=== PATIENT | male | born 1980 | race Caucasian/White ===

== ENCOUNTER → 2017-09-21 09:55 | Outpatient (REF) | payer BC, SELFPAY ==
[2017-09-21 14:22] LABS: Basophils % 0.3 % (0.1-2.0); Eosinophils # 0.1 K/mm3 (0.0-0.4); Eosinophils % 2.1 % (0.1-12.0); Hematocrit 48.3 % (42.0-52.0); Hemoglobin 15.6 g/dL (14.1-18.0); Lymphocytes # 1.9 K/mm3 (0.7-4.5); Lymphocytes % 30.7 K/mm3 (10-50); Mean Corpuscular HGB Conc 32.3 g/dL (31.8-35.4); Mean Corpuscular Hemoglobin 28.4 pg (27.0-31.2); Mean Corpuscular Volume 87.9 fl (80-94); Mean Platelet Volume 9.2 fl (7.4-10.4); Monocytes # 0.4 K/mm3 (0.1-1.0); Monocytes % 6.3 % (1.7-9.3); Neutrophils # 3.8 K/mm3 (1.8-7.8); Neutrophils % 60.6 % (37.0-80.0); Platelet Count 193 K/mm3 (142-424); Red Cell Distribution Width 13.3 % (11.5-17.5); White Blood Count 6.3 K/mm3 (4.8-10.8)
[2017-09-21 14:58] LABS: Hemoglobin A1C 9.4 % (0.0-7.0)
[2017-09-21 15:05] LABS: Alanine Aminotransferase 56 U/L (12-78); Albumin Level 3.7 gm/dL (3.4-5.0); Albumin/Globulin Ratio 1.2 (1.1-1.8); Alkaline Phosphatase 87 U/L (46-116); Anion Gap 11.6 mEq/L (5-15); Aspartate Amino Transferase 26 U/L (15-37); Bilirubin,Total 0.9 mg/dL (0.2-1.0); Blood Urea Nitrogen 10 mg/dL (7-18); Calcium 8.5 mg/dL (8.5-10.1); Carbon Dioxide 29 mmol/L (21.0-32.0); Chloride 104 mmol/L (98-107); Chol/HDL Ratio 6.4 (1-3.5); Cholesterol 185 mg/dL (140-200); Creatinine,Serum 0.76 mg/dL (0.70-1.30); Estimated Glomerular Filt Rate 117 ml/min (>60); GFR (African American) 142 ML/MIN (>60); Globulin 3.1 gm/dl (1.3-3.2); Glucose 276 mg/dL (74-106); HDL Cholesterol 29 mg/dL (27-67); LDL Cholesterol 107 mg/dL (0-130); Potassium 4.6 mmoL/L (3.5-5.1); Sodium 140 mmol/L (136-145); T4 (Thyroxine) 6.6 ug/dl (4.7-13.3); Thyroid Stimulating Hormone 1.45 uIU/ml (0.358-3.740); Total Protein,Serum 6.8 gm/dL (6.4-8.2); Triglycerides 244 mg/dL (30-200); VLDL Cholesterol 49 mg/dL (0-40)
[2017-09-22 09:20] LABS: Microalbumin, Urine 12.8 ug/mL (Not Estab.); Vitamin D 25 Hydroxy 27.8 ng/mL (30.0-100.0)
== END ==
LOC: LAB 09:55
PROVIDERS: Visit Provider Physician Assistant
DX: E11.9 Type 2 diabetes mellitus without complications (principal)
CPT/HCPCS: 80053; 80061; 82043; 82652; 83036; 84436; 84443; 85025

== ENCOUNTER → 2018-09-22 13:18 | Outpatient (CLI) | payer BC, SELFPAY ==
[2018-09-22 14:00] LABS: Basophils % 0.3 % (0.1-2.0); Eosinophils # 0.1 K/mm3 (0.0-0.4); Eosinophils % 1.1 % (0.1-12.0); Hematocrit 51.3 % (42.0-52.0); Hemoglobin 16.3 g/dL (14.1-18.0); Lymphocytes # 1.9 K/mm3 (0.7-4.5); Lymphocytes % 32.5 % (10-50); Mean Corpuscular HGB Conc 31.8 g/dL (31.8-35.4); Mean Corpuscular Hemoglobin 29.5 pg (27.0-31.2); Mean Corpuscular Volume 92.7 fl (80-94); Mean Platelet Volume 9.7 fl (7.4-10.4); Monocytes # 0.5 K/mm3 (0.1-1.0); Monocytes % 8.2 % (1.7-9.3); Neutrophils # 3.4 K/mm3 (1.8-7.8); Neutrophils % 57.8 % (37.0-80.0); Platelet Count 232 K/mm3 (142-424); Red Blood Count 5.53 M/mm3 (4.60-6.20); Red Cell Distribution Width 13.7 % (11.5-17.5); White Blood Count 5.9 K/mm3 (4.8-10.8)
[2018-09-22 14:44] LABS: Alanine Aminotransferase 62 U/L (12-78); Albumin Level 3.9 gm/dL (3.4-5.0); Albumin/Globulin Ratio 1.3 (1.1-1.8); Alkaline Phosphatase 64 U/L (46-116); Anion Gap 17.6 mEq/L (5-15); Aspartate Amino Transferase 27 U/L (15-37); Bilirubin,Total 1.9 mg/dL (0.2-1.0); Blood Urea Nitrogen 13 mg/dL (7-18); Calcium 8.8 mg/dL (8.5-10.1); Carbon Dioxide 26 mmol/L (21.0-32.0); Chloride 103 mmol/L (98-107); Chol/HDL Ratio 3.8 (1-3.5); Cholesterol 141 mg/dL (140-200); Creatinine,Serum 0.82 mg/dL (0.70-1.30); Estimated Glomerular Filt Rate 107 ml/min (>60); Free T4 (Free Thyroxine) 1.32 ng/dl (0.76-1.46); GFR (African American) 129 ML/MIN (>60); Globulin 2.9 gm/dl (1.3-3.2); Glucose 121 mg/dL (74-106); HDL Cholesterol 37 mg/dL (27-67); Hemoglobin A1C 9.4 % (0.0-7.0); LDL Cholesterol 87 mg/dL (0-130); Potassium 3.6 mmoL/L (3.5-5.1); Sodium 143 mmol/L (136-145); Thyroid Stimulating Hormone 1.43 uIU/ml (0.358-3.740); Total Protein,Serum 6.8 gm/dL (6.4-8.2); Triglycerides 87 mg/dL (30-200); VLDL Cholesterol 17 mg/dL (0-40)
[2018-09-23 19:16] LABS: Vitamin D 25 Hydroxy 35.2 ng/mL (30.0-100.0)
== END ==
PROVIDERS: Visit Provider Physician Assistant
DX: D72.829 Elevated white blood cell count, unspecified (principal); E11.9 Type 2 diabetes mellitus without complications; I10 Essential (primary) hypertension; R53.83 Other fatigue; R68.89 Other general symptoms and signs; Z79.84 Long term (current) use of oral hypoglycemic drugs
CPT/HCPCS: 80053; 80061; 82652; 83036; 84439; 84443; 85025

== ENCOUNTER → 2019-02-02 14:06 | Outpatient (CLI) | payer BC, SELFPAY ==
[2019-02-02 14:29] LABS: Basophils % 0.3 % (0.1-2.0); Eosinophils # 0.1 K/mm3 (0.0-0.4); Eosinophils % 1.3 % (0.1-12.0); Hematocrit 50.8 % (42.0-52.0); Hemoglobin 16.6 g/dL (14.1-18.0); Lymphocytes # 1.7 K/mm3 (0.7-4.5); Lymphocytes % 29.1 % (10-50); Mean Corpuscular HGB Conc 32.6 g/dL (31.8-35.4); Mean Corpuscular Hemoglobin 30.2 pg (27.0-31.2); Mean Corpuscular Volume 92.6 fl (80-94); Mean Platelet Volume 10.2 fl (7.4-10.4); Monocytes # 0.3 K/mm3 (0.1-1.0); Monocytes % 5.7 % (1.7-9.3); Neutrophils # 3.7 K/mm3 (1.8-7.8); Neutrophils % 63.7 % (37.0-80.0); Platelet Count 215 K/mm3 (142-424); Red Blood Count 5.49 M/mm3 (4.60-6.20); White Blood Count 5.8 K/mm3 (4.8-10.8)
[2019-02-02 14:40] LABS: Alanine Aminotransferase 27 U/L (12-78); Albumin Level 3.9 gm/dL (3.4-5.0); Albumin/Globulin Ratio 1.3 (1.1-1.8); Alkaline Phosphatase 79 U/L (46-116); Anion Gap 14.3 mEq/L (5-15); Aspartate Amino Transferase 9 U/L (15-37); Bilirubin,Total 1.2 mg/dL (0.2-1.0); Blood Urea Nitrogen 12 mg/dL (7-18); Calcium 9.3 mg/dL (8.5-10.1); Carbon Dioxide 27 mmol/L (21.0-32.0); Chloride 102 mmol/L (98-107); Chol/HDL Ratio 4.7 (1-3.5); Cholesterol 207 mg/dL (140-200); Creatinine,Serum 0.88 mg/dL (0.70-1.30); Estimated Glomerular Filt Rate 98 ml/min (>60); GFR (African American) 119 ML/MIN (>60); Globulin 3.1 gm/dl (1.3-3.2); Glucose 321 mg/dL (74-106); HDL Cholesterol 44 mg/dL (27-67); LDL Cholesterol 117 mg/dL (0-130); Potassium 4.3 mmoL/L (3.5-5.1); Sodium 139 mmol/L (136-145); T4 (Thyroxine) 6.8 ug/dl (4.7-13.3); Thyroid Stimulating Hormone 1.71 uIU/ml (0.358-3.740); Triglycerides 232 mg/dL (30-200); VLDL Cholesterol 46 mg/dL (0-40)
[2019-02-02 15:16] LABS: Hemoglobin A1C 7.3 % (0.0-7.0)
[2019-02-04 08:28] LABS: Vitamin D 25 Hydroxy 22.3 ng/mL (30.0-100.0)
[2019-02-04 17:16] LABS: Microalbumin, Urine 8.2 ug/mL (Not Estab.)
== END ==
PROVIDERS: Visit Provider Physician Assistant
DX: E11.9 Type 2 diabetes mellitus without complications (principal); E55.9 Vitamin D deficiency, unspecified; Z79.84 Long term (current) use of oral hypoglycemic drugs
CPT/HCPCS: 80053; 80061; 82043; 82652; 83036; 84436; 84443; 85025

== ENCOUNTER → 2019-12-27 11:35 | Outpatient (CLI) | payer BC, SELFPAY ==
[2019-12-27 14:43] LABS: Hemoglobin A1C 10.7 % (4.0-6.0)
[2019-12-27 14:46] LABS: Basophils % 0.3 % (0.1-2.0); Eosinophils # 0.1 K/mm3 (0.0-0.4); Eosinophils % 1.8 % (0.1-12.0); Hematocrit 47.8 % (42.0-52.0); Lymphocytes % 29.8 % (10-50); Mean Corpuscular HGB Conc 33.4 g/dL (31.8-35.4); Mean Corpuscular Hemoglobin 30.1 pg (27.0-31.2); Mean Corpuscular Volume 90.3 fl (80-94); Mean Platelet Volume 9.1 fl (7.4-10.4); Monocytes # 0.5 K/mm3 (0.1-1.0); Monocytes % 7.7 % (1.7-9.3); Neutrophils % 60.5 % (37.0-80.0); Platelet Count 196 K/mm3 (142-424); Red Cell Distribution Width 13.1 % (11.5-17.5); White Blood Count 6.6 K/mm3 (4.8-10.8)
[2019-12-27 16:29] LABS: Chloride 100 mmol/L (98-107)
[2019-12-27 16:30] LABS: Potassium 4.5 mmoL/L (3.5-5.1); Sodium 138 mmol/L (136-145)
[2019-12-27 16:32] LABS: Alanine Aminotransferase 47 U/L (12-78); Aspartate Amino Transferase 31 U/L (17-59); Blood Urea Nitrogen 14 mg/dl (9-20); Estimated Glomerular Filt Rate 109 ml/min (>60); GFR (African American) 132 ML/MIN (>60)
[2019-12-27 16:33] LABS: Albumin Level 4.1 g/dl (3.5-5.0); Albumin/Globulin Ratio 1.5 (1.1-1.8); Alkaline Phosphatase 74 U/L (38-126); Anion Gap 14.5 mEq/L (5-15); Bilirubin,Total 1.3 mg/dl (0.2-1.3); Calcium 9.2 mg/dl (8.4-10.2); Carbon Dioxide 28 mmol/L (22.0-30.0); Chol/HDL Ratio 6.7 (1-3.5); Cholesterol 195 mg/dl (140-200); Globulin 2.7 g/dL (1.3-3.2); Glucose 265 mg/dl (74-100); HDL Cholesterol 29 mg/dl (40-60); Total Protein,Serum 6.8 g/dl (6.3-8.2)
[2019-12-27 16:44] LABS: Direct LDL Cholesterol 70.77 mg/dL (100-129)
[2019-12-27 16:45] LABS: Triglycerides 610 mg/dl (30-150)
[2019-12-27 16:51] LABS: T4 (Thyroxine) 7.9 ug/dl (5.53-11.0)
== END ==
PROVIDERS: Visit Provider Physician Assistant
DX: E11.9 Type 2 diabetes mellitus without complications (principal); E55.9 Vitamin D deficiency, unspecified; E78.5 Hyperlipidemia, unspecified; Z79.84 Long term (current) use of oral hypoglycemic drugs
CPT/HCPCS: 36415; 80053; 80061; 83036; 84436; 84443; 85025

== ENCOUNTER → 2020-10-09 14:41 | Outpatient (CLI) | payer BC, SELFPAY | PROVIDERS: Visit Provider Physician Assistant | DX: E11.9 Type 2 diabetes mellitus without complications (principal); Z79.84 Long term (current) use of oral hypoglycemic drugs | CPT/HCPCS: 82043 ==

== ENCOUNTER 2020-10-17 21:01 | Emergency (ER) | payer BC, SELFPAY ==
[2020-10-17 21:25] VITALS: BP 156/99; PULSE 77; RESP 16; TEMP 36.7; O2SAT 97; BMI 36.5
--- NOTE | 2020-10-17 21:35 | XR_ITS ---
PROCEDURE INFORMATION: Exam: XR Left Hip Exam date and time: 10/17/2020 9:35 PM Age: 40 years old Clinical indication: Injury or trauma; Blunt trauma (contusions or hematomas); Left; Pelvic region; Injury date: 10/17/2020; Patient HX: Kicked by cow bruising inner thigh with groin and upper leg and knee pain TECHNIQUE: Imaging protocol: XR Left hip. Views: 2 or 3 views hip with pelvis when performed. COMPARISON: No relevant prior studies available. FINDINGS: Bones/joints: Unremarkable. No acute fracture. Soft tissues: Unremarkable. IMPRESSION: No acute findings.
--- NOTE | 2020-10-17 21:35 | XR_ITS ---
PROCEDURE INFORMATION: Exam: XR Left Femur Exam date and time: 10/17/2020 9:35 PM Age: 40 years old Clinical indication: Injury or trauma; Blunt trauma; Thigh or upper leg; Left; Injury date: 10/17/2020; Patient HX: Kicked by cow bruising inner thigh with pain in groin and upper leg and knee TECHNIQUE: Imaging protocol: XR Left femur. Views: 2 views. COMPARISON: No relevant prior studies available. FINDINGS: Bones/joints: Unremarkable. No acute fracture. Soft tissues: Unremarkable. IMPRESSION: No acute findings.
--- NOTE | 2020-10-17 21:35 | XR_ITS ---
PROCEDURE INFORMATION: Exam: XR Left Knee Exam date and time: 10/17/2020 9:35 PM Age: 40 years old Clinical indication: Injury or trauma; Other: Kicked by cow pain inner thigh and groin and knee; Blunt trauma; Left; Injury date: 10/17/2020; Injury details: Kicked by cow bruising inner thigh pain groin and leg and knee TECHNIQUE: Imaging protocol: XR Left knee. Views: 3 views. COMPARISON: No relevant prior studies available. FINDINGS: Bones/joints: Normal. Soft tissues: Evaluation is limited by positioning. IMPRESSION: Limited evaluation without definite acute osseous abnormality.
[2020-10-17 22:00] VITALS: BP 158/103; PULSE 74; O2SAT 97
--- NOTE | 2020-10-17 22:25 | HMH.EDLOEX ---
ED Disposition Clinical Impression: Tinea cruris Injury of left thigh Qualifiers: Encounter type: initial encounter Qualified Code(s): S79.922A - Unspecified injury of left thigh, initial encounter Disposition: Home, Self-Care Condition on Discharge: Good Instructions: DI for Contusion Additional Instructions: ice and see pcp for follow up Prescriptions: terbinafine HCL [Terbinafine HCl] 250 mg PO DAILY #10 tab Transmission Status: Pending to [facility] Referrals: Shikha Viveros PA [Primary Care Provider] - - Critical Care Critical Care Time: No Attestation: On 10/17/20, the high probability of a clinically significant, sudden or life threatening deterioration of the following system(s) required my full and direct attention, intervention and personal management. The time I documented below is in addition to time spent performing reported procedures but includes the following listed in this critical care notation. Medical Decision Making - Medical Records Medical records reviewed: Yes: I reviewed the patient's medical records. - Francis Inquiry Pt receiving controlled substance: No Vital Signs: 10/17/20 21:25 Temperature 98.1 F Temperature Source Oral Pulse Rate [Right] 77 Respiratory Rate 16 Blood Pressure [Right Arm] 156/99 H Blood Pressure Mean [Right Arm] 118 Blood Pressure Source [Right Arm] Automatic Cuff Blood Pressure Position [Right Arm] Supine 02 Sat by Pulse Oximetry 97 Oxygen Delivery Method Room Air - Lab Data Lab results reviewed: Yes: I reviewed the patient's lab results. Orders (Tests/Meds): ED MEDICATIONS Discontinued Medications Generic Name Dose Route Start Last Admin Trade Name Freq PRN Reason Stop Dose Admin Ketorolac Tromethamine 60 mg 10/17/20 21:44 10/17/20 21:54 Ketorolac 60mg/2ml Vial IM 10/17/20 21:45 Not Given ONCE ONE - Radiology Data #1 Image(s): Hip, Femur, Knee Image Reviewed: Yes I have reviewed radiologist's interpretation Preliminary Findings: No Fracture Seen - CT Data CT Scan: Other (femur) Time Received: 00:[address] Reviewed: Yes: I have viewed the radiologist's interpretation Preliminary Findings: Normal/NAD, No Fracture Seen - US Data US Images: Other (scrotal) ED US Reviewed: Yes: I have viewed radiologist's interpretation Preliminary Findings: Normal/NAD Medical Decision Narrative: acute soft tissue injury lt thigh Lower Extremity Injury HPI - General Chief Complaint: Extremity Injury, Lower Stated Complaint: AO 10/17@1999Kicked by cow inside L Leg,grown area Time Seen by Provider: 10/17/20 22:25 Mode of Arrival: Ambulatory Source of Information: Patient, Spouse, Medical Record Limitations: No Limitations Description of Symptoms (Recalled from ER Triage Doc. by RN): Pt states he was kicked in the inner left thigh by a cow. Pt ambulatory after incident and has a bruise to his inner thigh. No loss of sensation or movement. - History of Present Illness HPI Narrative: kicked lt thigh by cow with pain and swelling complaint: thigh injury Onset (ago): hour(s) Injury: Left: thigh Severity: moderate Context: direct blow Associated symptoms: swelling Other symptoms: none - Related Data Previous Rx's Medication Instructions Recorded aspirin 81 mg tablet,delayed 81 mg PO DAILY #90 tab 10/09/20 release atorvastatin 10 mg tablet 10 mg PO QHS 90 Days #90 tab 10/09/20 blood-glucose meter,continuous See Rx Instructions MISCELLANE 10/09/20 .MEDSUPPLY #1 each blood-glucose sensor See Rx Instructions .MEDSUPPLY #3 10/09/20 each blood-glucose transmitter See Rx Instructions .MEDSUPPLY #1 10/09/20 each glipizide 10 mg tablet, extended See Rx Instructions .ROUTE 10/09/20 release 24 hr .COMPLEX #90 tab lisinopril 2.5 mg tablet 2.5 mg PO DAILY #90 tab 10/09/20 metformin 500 mg tablet,extended See Rx Instructions .ROUTE 10/09/20 release 24 hr .COMPLEX #180 tab sitagliptin 100 mg t
--- NOTE | 2020-10-17 22:27 | US_ITS ---
PROCEDURE INFORMATION: Exam: US Scrotum Exam date and time: 10/17/2020 10:27 PM Age: 40 years old Clinical indication: Injury or trauma; Other: Kicked in left groin and inner thigh by cow; Blunt trauma; Testes; Injury date: 10/17/2020; Injury details: Kicked by cow in left testicle/left groin/ left inner thigh TECHNIQUE: Imaging protocol: Real-time ultrasound of the scrotum and contents with color Doppler and image documentation. COMPARISON: CT FEMUR LT WO CON 10/17/2020 11:13 PM FINDINGS: Right testicle: Normal. No mass. No torsion. Normal vascular flow. Right testicle measures 2.2 x 4.6 x 3.4 cm. Left testicle: Normal. No mass. No torsion. Normal vascular flow. Left testicle measures 1.9 x 3.7 x 3.4 cm. Epididymides: Normal. Scrotum: Normal. IMPRESSION: Normal scrotal ultrasound.
--- NOTE | 2020-10-17 22:28 | CT_ITS ---
PROCEDURE INFORMATION: Exam: CT Left Lower Extremity Without Contrast; Thigh Exam date and time: 10/17/2020 10:28 PM Age: 40 years old Clinical indication: Injury or trauma; Blunt trauma; Thigh or upper leg; Left; Injury date: 10/17/2020; Injury details: Kicked by cow inner thigh and groin; Additional info: Trauma lt thigh TECHNIQUE: Imaging protocol: CT of the Left lower extremity without contrast was performed. Exam focused on the thigh. 3D rendering (Not supervised by radiologist): MIP and/or 3D reconstructed images were created by the technologist. Radiation optimization: All CT scans at this facility use at least one of these dose optimization techniques: automated exposure control; mA and/or kV adjustment per patient size (includes targeted exams where dose is matched to clinical indication); or iterative reconstruction. COMPARISON: CR XR FEMUR LT 2V 10/17/2020 9:37 PM FINDINGS: Bones/joints: Normal. No acute fracture or dislocation. Soft tissues: Normal. IMPRESSION: Unremarkable CT.
--- NOTE | 2020-10-17 22:28 | PC.NURSE ---
Patient refused IV
[2020-10-17 22:30] VITALS: BP 155/103; PULSE 72; O2SAT 96
[2020-10-17 23:01] VITALS: BP 132/69; PULSE 69; O2SAT 98
[2020-10-18 00:11] VITALS: BP 148/86; PULSE 72; RESP 16; TEMP 36.7; O2SAT 99
== END 2020-10-18 00:16 | disposition home or self-care (01) ==
PROVIDERS: Emergency Provider Emergency Medicine; PCP Physician Assistant
DX: S79.922A Unspecified injury of left thigh, initial encounter (principal); W55.22XA Struck by cow, initial encounter; Y92.89 Other specified places as the place of occurrence of the external cause; B35.6 Tinea cruris; I10 Essential (primary) hypertension; E78.5 Hyperlipidemia, unspecified; E11.9 Type 2 diabetes mellitus without complications; Z79.899 Other long term (current) drug therapy
CPT/HCPCS: 73502; 73552; 73562; 73700; 76870; 99282

== ENCOUNTER → 2020-12-29 10:35 | Outpatient (CLI) | payer BC, SELFPAY ==
--- NOTE | 2020-12-29 10:39 | MR_ITS ---
PROCEDURE INFORMATION: Exam: MR Lumbar Spine Without Contrast Exam date and time: 12/29/2020 10:39 AM Age: 40 years old Clinical indication: Low back pain and sciatica; Right; Patient HX: Low back pain with RT leg tingling and numbness x3 months. PT was throwing straw and twisted back wrong; Additional info: Right sciatic nerve pain TECHNIQUE: Imaging protocol: Multiplanar magnetic resonance images of the lumbar spine without intravenous contrast. COMPARISON: None available. FINDINGS: Vertebrae: There is 2 mm of grade 1 anterolisthesis of L5 with respect to S1 with bilateral pars defects. Normal vertebral body alignment is otherwise preserved. Vertebral body heights are within normal limits. Spinal cord: Normal signal. No cord compression. L1-L2: No significant disc disease. No significant spinal canal stenosis. No neural foraminal stenosis. L2-L3: No significant disc disease. No significant spinal canal stenosis. No neural foraminal stenosis. L3-L4: No significant disc disease. No significant spinal canal stenosis. No neural foraminal stenosis. L4-L5: No significant disc disease. No significant spinal canal stenosis. No neural foraminal stenosis. L5-S1: There is disc bulging/uncovering related to listhesis with a prominent right foraminal component. There is moderate facet hypertrophy. There is moderate right and mild left neural foraminal narrowing. Disc material comes in close contact with the exiting right L5 nerve root. Soft tissues: Unremarkable. IMPRESSION: Disc bulging/uncovering related to listhesis secondary to bilateral pars defects at L5/S1 contributes to moderate right neural foraminal narrowing, with disc material in close contact with the exiting right L5 nerve root.
== END ==
PROVIDERS: PCP Physician Assistant; Visit Provider Internal Medicine Adolescent Medicine
DX: M54.31 Sciatica, right side (principal)
CPT/HCPCS: 72148; 76376

== ENCOUNTER → 2021-01-30 12:05 | Outpatient (CLI) | payer BC, SELFPAY ==
--- NOTE | 2021-01-30 12:07 | XR_ITS ---
PROCEDURE: XR LUMBAR SPINE MIN 4V CLINICAL INDICATION: Pain COMPARISON: No exams were available for comparison FINDINGS: 4 mm anterolisthesis L5 on S1. Alignment is otherwise unremarkable. No fracture or dislocation. Disc spaces are well preserved. Flexion extension views show no subluxation. Mild facet hypertrophic changes are present on the left at L4-5 and L5-S1. Cholelithiasis IMPRESSION: Minimal anterolisthesis L5 on S1 without subluxation in flexion or extension. Mild facet arthritic changes L4-5 and L5-S1 on the left Cholelithiasis Dictated by: Booker Lin MD 01/30/2021 13:10 Booker Lin MD in [place] 01/30/2021 13:10
== END ==
PROVIDERS: PCP Internal Medicine Adolescent Medicine; Visit Provider Neurological Surgery
DX: M54.50 Low back pain, unspecified (principal)
CPT/HCPCS: 72110

== ENCOUNTER 2022-10-17 08:27 | Emergency (ER) | payer BC, SELFPAY ==
[2022-10-17] VITALS (8 sets, daily range): BP systolic 127–172; BP diastolic 78–119; PULSE 55–74; RESP 18–20; TEMP 36.4–36.8; O2SAT 96–99; BMI 37.0; BMI 36.9
--- NOTE | 2022-10-17 08:51 | EXP.UTC ---
Discharge Plan Disposition Patient Disposition: Still a Patient Condition: Good Prescriptions Prescriptions: No Action chlorthalidone 25 mg tablet 25 mg PO DAILY lisinopril 40 mg tablet 40 mg PO DAILY rosuvastatin 10 mg tablet 10 mg PO DAILY Tradjenta 5 mg tablet 5 mg PO DAILY aspirin 81 mg tablet,delayed release (DR/EC) 81 mg PO DAILY metformin 500 mg tablet extended release 24 hr See Rx Instructions .ROUTE .COMPLEX Rx Instructions: TAKE 2 TABLETS BY MOUTH EVERY DAY Referrals Follow up/Referrals: Colby Boogie MD [Primary Care Provider] - See instructions Clinical Impressions Clinical Impression: Muscle cramps, Acute dehydration, Poorly controlled diabetes mellitus, Hypomagnesemia Discharge ED Provider: Lukas Durbin [facility] [place] General Chief complaint: Weakness Stated complaint: leg and arm cramps, BP was high Mode of Arrival: Ambulatory Source of Information: Patient and Spouse Limitations: No Limitations Time Seen by Provider: 10/17/22 09:03 Description of Symptoms (Recalled from Triage Doc. by RN): PATIENT STATES HE HAS BEEN HAVING CRAMPING IN HIS HANDS AND LEGS FOR A WHILE, BUT THEY WERE WORSE LAST NIGHT. HE ALSO REPORTS THAT HIS BLOOD PRESSURE AND SUGARS HAVE BEEN ELEVATED, DESPITE MEDICATION CHANGES. HE REPORTS SEEING HIS PCP YESTERDAY HEENT Symptoms (Recalled from RN notes): No Resp Symptoms (Recalled from RN notes): No Skin Symptoms (Recalled from RN notes): No MS Symptoms (Recalled from RN notes): Yes Functional Status (Recalled from RN notes): WNL History of Present Illness Provider Complaint: Patient states that he seen his PCP yesterday for the same complaint and they changed some of his medications States that he has been having cramping in his legs and hands for awhile now one and off and having issues with his blood pressure and Blood sugars being high, States that last night his cramping was worse and they kept him up most of the night States that it seems like it is getting worse so when he still didnt feel well he came in today Denies headache denies vision changes Related Data Home Medications Medication Instructions Recorded Confirmed aspirin 81 mg tablet,delayed 81 mg PO DAILY heart 10/17/22 10/17/22 release chlorthalidone 25 mg tablet 25 mg PO DAILY Hypertension 10/17/22 10/17/22 linagliptin 5 mg tablet (Tradjenta) 5 mg PO DAILY Diabetes 10/17/22 10/17/22 lisinopril 40 mg tablet 40 mg PO DAILY Hypertension 10/17/22 10/17/22 metformin 500 mg tablet,extended See Rx Instructions .Route 10/17/22 10/17/22 release 24 hr .COMPLEX Diabetes rosuvastatin 10 mg tablet 10 mg PO DAILY hyperlipidemia 10/17/22 10/17/22 Allergies Allergy/AdvReac Type Severity Reaction Status Date / Time No Known Allergies Allergy Verified 10/09/20 10:44 Worker's Comp Is this a Worker's Comp case?: No PFSH [facility] Disclaimer: The information contained in this section may have been updated after the patient was seen, as this information can be updated by other users. Medical History (Updated 10/17/22 @ 11:45 by Lukas Durbin MD) Diabetes mellitus Encounter for CDL (commercial driving license) exam Type 2 diabetes mellitus Social History Smoking Status: Never smoker alcohol intake: never substance use type: denies use current occupational status: employed Travel in the last 8 weeks: None ROS Obtained: Yes All systems reviewed & no additional complaints except as documented and Yes Systems reviewed as appropriate & no additional complaints except as documented Constitutional Constitutional: Reports system reviewed and no additional complaints, except as documented, Reports as per HPI and Denies headache(s) Eyes Eyes: Denies loss of vision ENT Ears, Nose, Mouth, and Throat: Reports system reviewed and no additional complaints, except as documented, Reports as per HPI and Denies headache(s) Cardiovascular Cardiovascular: Reports system r
--- NOTE | 2022-10-17 09:02 | HMH.EDGENADL ---
Discharge Plan Disposition Patient Disposition: Still a Patient Condition: Good Prescriptions Prescriptions: No Action chlorthalidone 25 mg tablet 25 mg PO DAILY lisinopril 40 mg tablet 40 mg PO DAILY rosuvastatin 10 mg tablet 10 mg PO DAILY Tradjenta 5 mg tablet 5 mg PO DAILY aspirin 81 mg tablet,delayed release (DR/EC) 81 mg PO DAILY metformin 500 mg tablet extended release 24 hr See Rx Instructions .ROUTE .COMPLEX Rx Instructions: TAKE 2 TABLETS BY MOUTH EVERY DAY Referrals Follow up/Referrals: Colby Boogie MD [Primary Care Provider] - See instructions Clinical Impressions Clinical Impression: Muscle cramps, Acute dehydration, Poorly controlled diabetes mellitus, Hypomagnesemia Discharge ED Provider: Lukas Durbin General Adult HPI General Chief complaint: Weakness Stated complaint: leg and arm cramps, BP was high Time Seen by Provider: 10/17/22 09:03 Mode of Arrival: Ambulatory Source of Information: Patient and Spouse Limitations: No Limitations Description of Symptoms (Recalled from ER Triage Doc. by RN): PATIENT STATES HE HAS BEEN HAVING CRAMPING IN HIS HANDS AND LEGS FOR A WHILE, BUT THEY WERE WORSE LAST NIGHT. HE ALSO REPORTS THAT HIS BLOOD PRESSURE AND SUGARS HAVE BEEN ELEVATED, DESPITE MEDICATION CHANGES. HE REPORTS SEEING HIS PCP YESTERDAY History of Present Illness HPI narrative: Patient is a 42-year-old male with poorly controlled diabetes presents today with muscular cramps particular in his left upper and left lower extremity. This has been going on for several days he followed up with his primary care doctor yesterday and will change some of his medications around. He is on multiple antihypertensive medications and diabetes medications. Denies any change in urine output or oral intake. No significant muscle aches and cramps at the moment and no darkened urine. No fevers or chills or vomiting or diarrhea. States has been working out in the heat and does drink some water. Related Data Home Medications Medication Instructions Recorded Confirmed aspirin 81 mg tablet,delayed 81 mg PO DAILY heart 10/17/22 10/17/22 release chlorthalidone 25 mg tablet 25 mg PO DAILY Hypertension 10/17/22 10/17/22 linagliptin 5 mg tablet (Tradjenta) 5 mg PO DAILY Diabetes 10/17/22 10/17/22 lisinopril 40 mg tablet 40 mg PO DAILY Hypertension 10/17/22 10/17/22 metformin 500 mg tablet,extended See Rx Instructions .Route 10/17/22 10/17/22 release 24 hr .COMPLEX Diabetes rosuvastatin 10 mg tablet 10 mg PO DAILY hyperlipidemia 10/17/22 10/17/22 Allergies Allergy/AdvReac Type Severity Reaction Status Date / Time No Known Allergies Allergy Verified 10/09/20 10:44 [facility] Disclaimer: The information contained in this section may have been updated after the patient was seen, as this information can be updated by other users. Medical History (Updated 10/17/22 @ 11:45 by Lukas Durbin MD) Diabetes mellitus Encounter for CDL (commercial driving license) exam Type 2 diabetes mellitus Social History Smoking Status: Never smoker alcohol intake: never substance use type: denies use current occupational status: employed Travel in the last 8 weeks: None ROS Obtained: Yes All systems reviewed & no additional complaints except as documented Physical Exam General General appearance: alert Respiratory Respiratory exam: Present normal lung sounds bilaterally; Absent respiratory distress Cardiovascular Cardiovascular exam: Present regular rate; Absent tachycardia Neurological Exam Neurological exam: Present alert and oriented X3 Medical Decision Making Francis Inquiry Pt receiving controlled substance: No Vital Signs: 10/17/22 08:35 10/17/22 09:00 10/17/22 09:03 Temperature 97.6 F 98.2 F Temperature Source Oral Oral Pulse Rate 70 Pulse Rate [Left Brachial] 69 74 Respiratory Rate 20 18 Blood Pressure 172/119 H Blood
--- NOTE | 2022-10-17 09:03 | PC.NURSE ---
PATIENT SENT TO ER PER Flower STUART APRN FOR FURTHER EVALUATION. REPORT GIVEN TO Bridgett CLEARY RN BY Flower STUART APRN. PATIENT TRANSPORTED TO ER VIA WHEELCHAIR WITH [facility] STAFF ASSIST AT THIS TIME
[2022-10-17 09:40] LABS: Alanine Aminotransferase 37 U/L (12-78); Albumin Level 4.5 g/dl (3.5-5.0); Albumin/Globulin Ratio 1.6 (1.1-1.8); Alkaline Phosphatase 102 U/L (38-126); Anion Gap 12.5 mEq/L (5-15); Aspartate Amino Transferase 38 U/L (17-59); Bilirubin,Total 1.8 mg/dl (0.2-1.3); Blood Urea Nitrogen 12 mg/dl (9-20); Calcium 9.3 mg/dl (8.4-10.2); Carbon Dioxide 29 mmol/L (22.0-30.0); Chloride 96 mmol/L (98-107); Creatine Kinase 103 U/L (55-170); Creatinine Clearance Estimated 240 mL/min (50-200); Estimated Glomerular Filt Rate 149 ml/min (>60); GFR (African American) 181 ML/MIN (>60); Globulin 2.8 g/dL (1.3-3.2); Magnesium 1.5 mg/dl (1.6-2.3); Phosphorous 4.2 mg/dl (2.5-4.5); Potassium 4.5 mmoL/L (3.5-5.1); Sodium 133 mmol/L (136-145); Total Protein,Serum 7.3 g/dl (6.3-8.2)
[2022-10-17 09:45] LABS: Glucose 409 mg/dl (74-100)
--- NOTE | 2022-10-17 09:46 | PC.NURSE ---
Dr. Durbin notified of glucose level of 409.
--- NOTE | 2022-10-17 10:11 | PC.NURSE ---
Patient checked on with no complaints or needs at this time.
--- NOTE | 2022-10-17 10:32 | PC.NURSE ---
Checked on patient. No needs required at this time.
[2022-10-17 11:14] LABS: Basophils % 0.1 % (0.1-2.0); Eosinophils # 0.2 K/mm3 (0.0-0.4); Eosinophils % 2.2 % (0.1-12.0); Hematocrit 43.3 % (42.0-52.0); Hemoglobin 15.4 g/dL (14.1-18.0); Lymphocytes # 2.3 K/mm3 (0.7-4.5); Lymphocytes % 32.6 % (10-50); Mean Corpuscular HGB Conc 35.6 g/dL (31.8-35.4); Mean Corpuscular Hemoglobin 29.9 pg (27.0-31.2); Mean Corpuscular Volume 84.1 fl (80-94); Mean Platelet Volume 12.2 fl (7.4-10.4); Monocytes # 0.7 K/mm3 (0.1-1.0); Monocytes % 9.9 % (1.7-9.3); Neutrophils # 3.8 K/mm3 (1.8-7.8); Neutrophils % 55.1 % (37.0-80.0); Platelet Count 215 K/mm3 (142-424); Red Blood Count 5.15 M/mm3 (4.60-6.20); Red Cell Distribution Width 12.6 % (11.5-17.5)
== END 2022-10-17 11:53 | disposition still patient (30) ==
LOC: UTC 08:31 → ER 08:59
PROVIDERS: Emergency Provider Student in an Organized Health Care Education/Training Program; PCP Internal Medicine Adolescent Medicine
DX: E86.0 Dehydration (principal); E11.65 Type 2 diabetes mellitus with hyperglycemia; E83.42 Hypomagnesemia
CPT/HCPCS: 80053; 82550; 83735; 84100; 85025; 96360; 96361; 99285; J3475

== ENCOUNTER 2022-10-19 11:53 | Emergency (ER) | payer BC, SELFPAY ==
[2022-10-19] VITALS (7 sets, daily range): BP systolic 138–179; BP diastolic 81–105; PULSE 71–82; RESP 18–20; TEMP 36.3; O2SAT 97–98; BMI 36.9
[2022-10-19 12:04] LABS: POC Glucose,Bedside 431 (70-110)
--- NOTE | 2022-10-19 12:20 | HMH.EDGENADL ---
Discharge Plan Disposition Patient Disposition: Home, Self-Care Prescriptions Prescriptions: No Action chlorthalidone 25 mg tablet 25 mg PO DAILY lisinopril 40 mg tablet 40 mg PO DAILY rosuvastatin 10 mg tablet 10 mg PO DAILY Tradjenta 5 mg tablet 5 mg PO DAILY aspirin 81 mg tablet,delayed release (DR/EC) 81 mg PO DAILY metformin 500 mg tablet extended release 24 hr See Rx Instructions .ROUTE .COMPLEX Rx Instructions: TAKE 2 TABLETS BY MOUTH EVERY DAY Referrals Follow up/Referrals: Colby Boogie MD [Primary Care Provider] - See instructions Activity Restrictions/Add. Instructions Additional Instructions/Restrictions: Follow-up with your primary doctor regarding use of insulin and adding diabetes medications. If you have any other concerning signs or symptoms, return to the ER for further evaluation, or your primary care provider. Be sure to stay hydrated, avoid sugary drinks. Stop taking rosuvastatin Clinical Impressions Clinical Impression: Cramp in muscle Type 2 diabetes mellitus Qualifiers: Diabetes mellitus care home insulin use: without terminal superintendent use Diabetes mellitus complication status: without complication Qualified Code(s): E11.9 - Type 2 diabetes mellitus without complications Instructions Patient Instructions: DI for Syncope in Adults (Fainting), DI for Syncope in Children (Fainting) Discharge ED Provider: Jose Aponte General Adult HPI General Chief complaint: Syncope Stated complaint: high sugar, soa Time Seen by Provider: 10/19/22 11:55 History of Present Illness HPI narrative: This is a 42-year-old male with history of hypertension, hyperlipidemia, type 2 diabetes not currently on insulin presenting with multiple complaints. Patient states that he was seen by his primary care provider about 4 days prior to arrival and blood pressure medications were rearranged. He was seen on 10/17, 2 days prior to arrival, for dehydration and muscle cramping. At that time, was found to have hyperglycemia and rehydrated. Patient was given electrolyte repletion, fluid repletion, return to baseline, discharged home with endocrinology follow-up. Patient already has endocrinology follow-up scheduled, per conversation with patient and . Patient returning today because continuing to have cramps, but had episode of syncope versus presyncope earlier today on 10/19. Shortly after this episode, blood sugar was checked and it was over 450, so patient's convinced patient to come to the emergency department. Patient denies chest pain, nausea or vomiting, abdominal pain, dysuria or hematuria, frequency or urgency, flank pain, confusion, vision changes, or any other acute complaints at this time. Related Data Home Medications Medication Instructions Recorded Confirmed aspirin 81 mg tablet,delayed 81 mg PO DAILY heart 10/17/22 10/17/22 release chlorthalidone 25 mg tablet 25 mg PO DAILY Hypertension 10/17/22 10/17/22 linagliptin 5 mg tablet (Tradjenta) 5 mg PO DAILY Diabetes 10/17/22 10/17/22 lisinopril 40 mg tablet 40 mg PO DAILY Hypertension 10/17/22 10/17/22 metformin 500 mg tablet,extended See Rx Instructions .Route 10/17/22 10/17/22 release 24 hr .COMPLEX Diabetes rosuvastatin 10 mg tablet 10 mg PO DAILY hyperlipidemia 10/17/22 10/17/22 Allergies Allergy/AdvReac Type Severity Reaction Status Date / Time No Known Allergies Allergy Verified 10/09/20 10:44 [facility] Disclaimer: The information contained in this section may have been updated after the patient was seen, as this information can be updated by other users. Medical History (Updated 10/19/22 @ 14:56 by Jose Aponte MD) Diabetes mellitus Encounter for CDL (commercial driving license) exam Type 2 diabetes mellitus Social History Smoking Status: Never smoker alcohol intake: never substance use type: denies use current occupational status: employed Travel in the last 8 wee
--- NOTE | 2022-10-19 12:31 | ECG_ITS ---
APPROVED REPORT Exam: Resting ECG HR:68 bpm ECG Measurements Heart Rate 68 AXES AL 182 P 34 QRSd 106 QRS 81 QT 367 T -20 QTc 384 Conclusion SINUS RHYTHM NONSPECIFIC ST & T-WAVE ABNORMALITY ABNORMAL ECG UNCONFIRMED REPORT Electronically signed by : Colby Boogie MD 10/20/2022 18:01:10
[2022-10-19 12:49] LABS: VBG Base Excess -1.3 mmol/L (-2.4-2.3); VBG HCO3 24.4 mmol/L (23-30); VBG Oxygen Saturation 73.8 % (50-70); VBG PCO2 45.5 mmol/L (35-51); VBG PH 7.35 mmol/L (7.31-7.41); VBG PO2 38.1 mmol/L (28-40); VBG Total CO2 25.8 mmol/L (23-27)
[2022-10-19 12:54] LABS: Basophils % 0.5 % (0.1-2.0); Eosinophils # 0.1 K/mm3 (0.0-0.4); Eosinophils % 1.9 % (0.1-12.0); Hematocrit 47.3 % (42.0-52.0); Hemoglobin 15.3 g/dL (14.1-18.0); Lymphocytes # 1.8 K/mm3 (0.7-4.5); Lymphocytes % 26.3 % (10-50); Mean Corpuscular HGB Conc 32.3 g/dL (31.8-35.4); Mean Corpuscular Hemoglobin 28.9 pg (27.0-31.2); Mean Corpuscular Volume 89.5 fl (80-94); Mean Platelet Volume 9.5 fl (7.4-10.4); Monocytes # 0.5 K/mm3 (0.1-1.0); Neutrophils # 4.5 K/mm3 (1.8-7.8); Neutrophils % 64.4 % (37.0-80.0); Platelet Count 185 K/mm3 (142-424); Red Blood Count 5.28 M/mm3 (4.60-6.20); Red Cell Distribution Width 13.6 % (11.5-17.5)
[2022-10-19 13:03] LABS: Lipase 261 U/L (23-300)
[2022-10-19 13:10] LABS: Acetone, Serum (Rapid) None Detected (None Detect)
[2022-10-19 13:12] LABS: Alanine Aminotransferase 38 U/L (12-78); Albumin/Globulin Ratio 1.7 (1.1-1.8); Alkaline Phosphatase 115 U/L (38-126); Anion Gap 12.3 mEq/L (5-15); Aspartate Amino Transferase 37 U/L (17-59); Blood Urea Nitrogen 16 mg/dl (9-20); Calcium 9.3 mg/dl (8.4-10.2); Carbon Dioxide 30 mmol/L (22.0-30.0); Chloride 97 mmol/L (98-107); Creatine Kinase 306 U/L (55-170); Creatinine Clearance Estimated 180 mL/min (50-200); Estimated Glomerular Filt Rate 107 ml/min (>60); GFR (African American) 130 ML/MIN (>60); Globulin 2.3 g/dL (1.3-3.2); Glucose 375 mg/dl (74-100); Potassium 4.3 mmoL/L (3.5-5.1); Sodium 135 mmol/L (136-145); Total Protein,Serum 6.3 g/dl (6.3-8.2)
[2022-10-19 13:34] LABS: Troponin I < 0.01 ng/ml (0.00-0.034)
[2022-10-19 13:39] LABS: Hemoglobin A1C 11.9 % (4.0-6.0)
[2022-10-19 13:43] LABS: Thyroid Stimulating Hormone 1.06 uIU/mL (0.465-4.68)
[2022-10-19 14:36] LABS: Triglycerides 876 mg/dl (30-150)
--- NOTE | 2022-10-19 14:46 | PC.NURSE ---
pt sugar is 256
== END 2022-10-19 15:18 | disposition home or self-care (01) ==
PROVIDERS: Emergency Provider Emergency Medicine; PCP Internal Medicine Adolescent Medicine
DX: E11.65 Type 2 diabetes mellitus with hyperglycemia (principal); R55 Syncope and collapse; I10 Essential (primary) hypertension; E78.5 Hyperlipidemia, unspecified
CPT/HCPCS: 80053; 82009; 82550; 82803; 82962; 83036; 83690; 84443; 84478; 84484; 85025; 93005; 96361; 96374; 99285

== ENCOUNTER 2022-12-08 08:45 | Emergency (ER) | payer BC, SELFPAY ==
[2022-12-08] VITALS (8 sets, daily range): BP systolic 125–169; BP diastolic 64–99; PULSE 65–75; RESP 19; TEMP 36.6; O2SAT 94–100; BMI 38.7
--- NOTE | 2022-12-08 09:06 | PC.NURSE ---
attempted x2 for IV with no success, pt states this nurse cant stick him anymore. US guided IV will be attempted by Aisha GALVEZ
--- NOTE | 2022-12-08 09:12 | CT_ITS ---
FINAL REPORT TECHNIQUE: After the administration of intravenous contrast, axial images were obtained through the abdomen and pelvis by computed tomography. This study was performed with technique to keep radiation doses as low as reasonably achievable, (ALARA). Individualized dose reduction techniques using automated exposure control or adjustment of the MA and/or KV according to the patient's size were employed. CLINICAL HISTORY: severe L hemiabdominal tenderness FINDINGS: Abdomen: There is mild bibasilar atelectasis or scarring. The liver is fatty infiltrated. There are multiple gallstones. The spleen is unremarkable. The adrenals are normal. The pancreas is unremarkable. The kidneys enhance appropriately. The aorta is normal in caliber. There is no free fluid or adenopathy. Multiple fluid-filled bowel loops are seen which are nonspecific but may represent enteritis. Pelvis: The appendix is normal. The urinary bladder is unremarkable. There is no free fluid or adenopathy. Bilateral L5 pars defects are noted. IMPRESSION: Cholelithiasis. Multiple fluid-filled bowel loops which are nonspecific but may represent enteritis. Reviewed, Interpreted and Dictated by Rony Maciel III, MD Transcribed by Jazmyne Tavarez Authenticated and [facility]
--- NOTE | 2022-12-08 09:13 | HMH.EDGENADL ---
Discharge Plan Disposition Patient Disposition: Home, Self-Care Chief Complaint: Abdominal Pain Prescriptions Prescriptions: No Action chlorthalidone 25 mg tablet 25 mg PO DAILY lisinopril 40 mg tablet 40 mg PO DAILY rosuvastatin 10 mg tablet 10 mg PO DAILY Tradjenta 5 mg tablet 5 mg PO DAILY aspirin 81 mg tablet,delayed release (DR/EC) 81 mg PO DAILY metformin 500 mg tablet extended release 24 hr See Rx Instructions .ROUTE .COMPLEX Rx Instructions: TAKE 2 TABLETS BY MOUTH EVERY DAY Referrals Follow up/Referrals: Colby Boogie MD [Primary Care Provider] - See instructions Familia Adams MD [Staff Physician] - See instructions Activity Restrictions/Add. Instructions Additional Instructions/Restrictions: At this time is felt you are safe to be discharged home. If new or worsening symptoms please do not hesitate to return the emergency department. Please call and schedule an appointment with surgery for continued evaluation of your gallbladder. Please continue to follow-up for evaluation of your high blood sugar. Clinical Impressions Clinical Impression: Acute hyperglycemia, Abdominal pain, Cholelithiasis Instructions Patient Instructions: DI for Acute Abdominal Pain Discharge ED Provider: Sujit Post General Adult HPI General Chief complaint: Abdominal Pain Stated complaint: abd pain Time Seen by Provider: 12/08/22 08:53 Mode of Arrival: Ambulatory Source of Information: Patient and Spouse Limitations: No Limitations Description of Symptoms (Recalled from ER Triage Doc. by RN): 42 yo M presnts to ED with c/o vomitting, abd pain. symptoms began this am around 4 am. pt is type 2 diabetic. pt reports inability to keep anything down. diarrhea. generalized abdominal pain, worse in lower quadrant. History of Present Illness HPI narrative: Patient is a 42-year-old male with [id number] diabetes presents emergency department for evaluation of abdominal pain. Onset was acute at approximately 4 AM, severe left-sided abdominal pain, nonbloody vomiting. There is associated diarrhea, last bowel movement 30 minutes prior to arrival. Pain is severe in intensity, described as stabbing . No other acute complaints at this time. Related Data Home Medications Medication Instructions Recorded Confirmed aspirin 81 mg tablet,delayed 81 mg PO DAILY heart 10/17/22 10/17/22 release chlorthalidone 25 mg tablet 25 mg PO DAILY Hypertension 10/17/22 10/17/22 linagliptin 5 mg tablet (Tradjenta) 5 mg PO DAILY Diabetes 10/17/22 10/17/22 lisinopril 40 mg tablet 40 mg PO DAILY Hypertension 10/17/22 10/17/22 metformin 500 mg tablet,extended See Rx Instructions .Route 10/17/22 10/17/22 release 24 hr .COMPLEX Diabetes rosuvastatin 10 mg tablet 10 mg PO DAILY hyperlipidemia 10/17/22 10/17/22 Allergies Allergy/AdvReac Type Severity Reaction Status Date / Time No Known Allergies Allergy Verified 10/09/20 10:44 [facility] Disclaimer: The information contained in this section may have been updated after the patient was seen, as this information can be updated by other users. Medical History (Updated 12/08/22 @ 12:23 by Sujit Post MD) Diabetes mellitus Encounter for CDL (commercial driving license) exam Type 2 diabetes mellitus Social History Smoking Status: Never smoker alcohol intake: never substance use type: denies use current occupational status: employed Travel in the last 8 weeks: None ROS Obtained: Yes Systems reviewed as appropriate & no additional complaints except as documented Physical Exam General General appearance: alert and in distress Head Head exam: atraumatic and normocephalic Eye Eye exam: Present PERRL and EOMI ENT ENT exam: Present mucous membranes moist Neck Neck exam: Present normal inspection Chest Chest inspection: Present normal inspection and symmetric chest wall rise Respiratory Respiratory exa
--- NOTE | 2022-12-08 09:16 | PC.NURSE ---
blood glucose check @915 was 258..
[2022-12-08 09:19] LABS: POC Glucose,Bedside 258 (70-110)
[2022-12-08 09:30] LABS: Basophils % 0.3 % (0.1-2.0); Chloride 105 mmol/L (98-107); Eosinophils # 0.2 K/mm3 (0.0-0.4); Eosinophils % 1.6 % (0.1-12.0); Hematocrit 53.1 % (42.0-52.0); Hemoglobin 17.2 g/dL (14.1-18.0); Lymphocytes # 0.9 K/mm3 (0.7-4.5); Lymphocytes % 8.1 % (10-50); Mean Corpuscular HGB Conc 32.4 g/dL (31.8-35.4); Mean Corpuscular Volume 89.6 fl (80-94); Mean Platelet Volume 9.1 fl (7.4-10.4); Monocytes # 0.7 K/mm3 (0.1-1.0); Monocytes % 5.8 % (1.7-9.3); Neutrophils # 9.8 K/mm3 (1.8-7.8); Neutrophils % 84.3 % (37.0-80.0); Platelet Count 257 K/mm3 (142-424); Red Blood Count 5.92 M/mm3 (4.60-6.20); Red Cell Distribution Width 13.9 % (11.5-17.5); Sodium 139 mmol/L (136-145); White Blood Count 11.7 K/mm3 (4.8-10.8)
[2022-12-08 09:31] LABS: Potassium 4.6 mmoL/L (3.5-5.1)
[2022-12-08 09:32] LABS: Microscopic, Urine URINE MICROSCOPIC (MICROSCOPIC)
[2022-12-08 09:33] LABS: Alanine Aminotransferase 39 U/L (12-78); Alkaline Phosphatase 90 U/L (38-126); Anion Gap 17.6 mEq/L (5-15); Aspartate Amino Transferase 32 U/L (17-59); Bilirubin,Total 1.4 mg/dl (0.2-1.3); Blood Urea Nitrogen 17 mg/dl (9-20); Carbon Dioxide 21 mmol/L (22.0-30.0); Creatinine Clearance Estimated 189 mL/min (50-200); Estimated Glomerular Filt Rate 107 ml/min (>60); GFR (African American) 130 ML/MIN (>60); Lipase 169 U/L (23-300)
[2022-12-08 09:34] LABS: Albumin Level 4.2 g/dl (3.5-5.0); Albumin/Globulin Ratio 1.5 (1.1-1.8); Calcium 9.8 mg/dl (8.4-10.2); Globulin 2.8 g/dL (1.3-3.2); Glucose 284 mg/dl (74-100); Lactic Acid 1.6 mmol/L (0.7-2.1)
[2022-12-08 09:38] LABS: Appearance,Urine CLEAR (Clear); Bilirubin,Urine Negative (Negative); Blood, Urine Negative (Negative); Color,Urine YELLOW (Yellow); Glucose,Urine (UA) 3+ (Negative); Ketones,Urine 2+ (Negative); Leukocyte Esterase,Urine Negative (Negative); Nitrate,Urine Negative (Negative); Protein,Urine Negative (Negative); Specific Gravity, Urine 1.015 (1.005-1.030); Urobilinogen,Urine 0.2 EU/dl (0.2)
[2022-12-08 09:48] LABS: VBG Base Excess -6.6 mmol/L (-2.4-2.3); VBG HCO3 18.1 mmol/L (23-30); VBG Oxygen Saturation 86.9 % (50-70); VBG PCO2 29.6 mmol/L (35-51)
--- NOTE | 2022-12-08 09:49 | PC.NURSE ---
Rounded on pt. No needs voiced at this time.
[2022-12-08 10:00] LABS: Bacteria,Urine Trace /lpf; Squamous Epithelial Cell,Urine Occasional #/hpf (0-5)
== END 2022-12-08 12:36 | disposition home or self-care (01) ==
PROVIDERS: Emergency Provider Emergency Medicine; PCP Internal Medicine Adolescent Medicine
DX: K80.80 Other cholelithiasis without obstruction (principal); E11.65 Type 2 diabetes mellitus with hyperglycemia
CPT/HCPCS: 74177; 80053; 81001; 82803; 82962; 83605; 83690; 85025; 96361; 96374; 96375; 99285; J2405

== ENCOUNTER → 2022-12-23 07:52 | Outpatient (CLI) | payer BC, SELFPAY ==
--- NOTE | 2022-12-23 07:52 | US_ITS ---
FINAL REPORT TECHNIQUE: Sonographic images of the right upper quadrant were obtained. CLINICAL HISTORY: right upper quad pain COMPARISON: None FINDINGS: PANCREAS: Unremarkable. LIVER: Homogeneous, with diffuse increased echogenicity compatible with fatty infiltration of the liver.. No focal hepatic lesion. No intrahepatic biliary ductal dilatation. GALLBLADDER: Gallstones are present in the gallbladder. No gallbladder wall thickening or pericholecystic fluid. COMMON DUCT: 2.3 mm. Normal for age. RIGHT KIDNEY: The right kidney measures 11 cm. There is no hydronephrosis, mass, or stone. FREE FLUID: None. IMPRESSION: Gallstones, and fatty infiltration of the liver. Reviewed, Interpreted and Dictated by Pastora Kramer MD Transcribed by Celine Nagy Authenticated and [facility]
[2022-12-23 08:48] LABS: Basophils % 0.6 % (0.1-2.0); Eosinophils # 0.1 K/mm3 (0.0-0.4); Eosinophils % 2.3 % (0.1-12.0); Hematocrit 50.5 % (42.0-52.0); Hemoglobin 16.3 g/dL (14.1-18.0); Lymphocytes # 1.5 K/mm3 (0.7-4.5); Lymphocytes % 33.3 % (10-50); Mean Corpuscular HGB Conc 32.2 g/dL (31.8-35.4); Mean Corpuscular Hemoglobin 29.3 pg (27.0-31.2); Monocytes # 0.6 K/mm3 (0.1-1.0); Monocytes % 12.8 % (1.7-9.3); Neutrophils # 2.3 K/mm3 (1.8-7.8); Platelet Count 194 K/mm3 (142-424); Red Blood Count 5.55 M/mm3 (4.60-6.20); Red Cell Distribution Width 13.7 % (11.5-17.5); White Blood Count 4.5 K/mm3 (4.8-10.8)
[2022-12-23 10:19] LABS: Alanine Aminotransferase 42 U/L (12-78); Albumin Level 4.3 g/dl (3.5-5.0); Albumin/Globulin Ratio 1.6 (1.1-1.8); Alkaline Phosphatase 68 U/L (38-126); Amylase 33 U/L (30-110); Anion Gap 13.8 mEq/L (5-15); Aspartate Amino Transferase 35 U/L (17-59); Bilirubin,Total 1.6 mg/dl (0.2-1.3); Blood Urea Nitrogen 16 mg/dl (9-20); Carbon Dioxide 26 mmol/L (22.0-30.0); Chloride 103 mmol/L (98-107); Estimated Glomerular Filt Rate 107 ml/min (>60); GFR (African American) 130 ML/MIN (>60); Globulin 2.7 g/dL (1.3-3.2); Glucose 187 mg/dl (74-100); Lipase 75 U/L (23-300); Potassium 4.8 mmoL/L (3.5-5.1); Sodium 138 mmol/L (136-145)
[2022-12-23 10:33] LABS: Hemoglobin A1C 8.8 % (4.0-6.0)
== END ==
PROVIDERS: PCP Internal Medicine Adolescent Medicine; Visit Provider Surgery
DX: R10.11 Right upper quadrant pain (principal); K80.20 Calculus of gallbladder without cholecystitis without obstruction
CPT/HCPCS: 36415; 76705; 80053; 82150; 83036; 83690; 85025